=== PATIENT | female | born 1975 | race Two or more races ===

== ENCOUNTER 2025-09-08 23:55 | Emergency (ER) | payer MEDICAID ==
[~2025-09-08] VITALS: Ht 157.5 cm; Wt 50.1 kg
--- NOTE | 2025-09-09 00:53 | Physician Documentation ---
History of Present Illness ~ Chief Complaint: Hand pain Stated Complaint: FINGER INFECTION Time Seen by MD: 00:52 HPI 49-year-old female presenting with hand pain She tells me that about a week or so ago she cut her hand with a piece of glass. Since that time she has had gradually worsening pain, swelling, redness, and warmth. She actually went to the hospital and red [place]. She was admitted to the hospital and given IV antibiotics, and says that they were going to do surgery. However she left against medical advice. She returns here with worsening symptoms. She is right-handed Per paperwork from [facility]. The patient was seen a couple of times in the emergency department for similar symptoms. She was diagnosed with hand cellulitis and flexor tenosynovitis. She was treated with antibiotics, and plan was for orthopedic surgery. She did have a normal hand x-ray. Medication Reconciliation Allergies: Coded Allergies: ceftriaxone (Verified Allergy, Intermediate, 09/09/25) Review of Systems Constitutional: Denies: fever Musculoskeletal: Reports: pain, swelling Integumentary: Reports: rash Physical Exam Vital Signs: Temperature: 98.2, Source: Oral, Heart Rate: 98, Respiratory Rate: 18, BP: 114/70, Pulse Oximetry: 100, Weight: 50.100 Physical Exam General: This is a tired and uncomfortable appearing middle-aged woman, partner at bedside HEENT: Atraumatic, oropharynx is moist Heart: Mild tachycardic, appears regular Lungs: normal work of breathing, normal oxygen saturation on room air Extremities: Right-hand: The patient has significant swelling, redness and warmth to her woods d, especially around the 1st and 2nd digits and hand, which extends down to the distal forearm. She is unable to straighten her 2nd digit, and has significant tenderness along the flexor sheath region. There is some skin discoloration around the fingertip, with some blistering. Neuro: Alert and oriented Psychiatric: Flattened affect, but is cooperative with exam Progress Results/Orders Results/Orders Orders - OWEN CHU MD Culture Blood (09/09/25 01:09) Ct Upper Extrem(Shoulder/Arm) (09/09/25 06:00) Completed Orders - OWEN CHU MD C-Reactive Protein (09/09/25 01:09) Cbc/Diff (09/09/25 01:09) CMP (09/09/25 01:09) LA (09/09/25 01:09) ESR (09/09/25 01:09) Ketorolac Trometh 15mg/Ml Vial (Toradol (09/09/25 01:10) Morphine 4mg/Ml Inj. (Morphine Inj.) (09/09/25 01:10) Vancomycin*Pharmacy To Dose* (Vancomycin (09/09/25 01:10) Piperacillin/Tazo 4.5gm/100ml (Zosyn 4.5 (09/09/25 08:00) Vancomycin 1250mg/Ns 250ml Bag (Vancomyc (09/09/25 03:40) Hydromorphone 1 Mg/Ml/Pf (Dilaudid Inj.) (09/09/25 03:50) Vancomycin/Ns 1 Gm Add-[place] (Vancomyc (09/09/25 04:00) Vancomycin 1250mg/Ns 250ml Bag (Vancomyc (09/09/25 04:15) Potassium Cl 10meq/100ml Bag (Potassium (09/09/25 04:30) Ct Upper Extrem(Shoulder/Arm) (09/09/25 06:00) Iohexol 300mg/Ml 100ml Inj. (Omnipaque-3 (09/09/25 05:27) Vital Signs 09/08/25 09/09/25 09/09/25 09/09/25 23:58 01:09 01:38 01:38 Temp 98.2 Pulse 98 Resp 18 16 16 17 B/P (MAP) 114/70 Pulse Ox 100 09/09/25 09/09/25 09/09/25 09/09/25 04:24 05:42 06:02 06:41 Pulse 92 88 Resp 16 16 16 17 B/P (MAP) 120/74 (89) 112/72 (85) Pulse Ox 99 99 09/09/25 09/09/25 06:41 07:30 Temp 98.9 Pulse 78 93 Resp 18 18 B/P (MAP) 107/65 (79) 107/61 (76) Pulse Ox 98 98 O2 Flow Rate 0 0 Laboratory Tests Test 09/09/25 01:17 09/09/25 01:33 Lactic Acid Level 1.3 White Blood Count 9.4 Red Blood Count 3.29 L Hemoglobin 9.6 L Hematocrit 28.4 L Mean Corpuscular Volume 86.3 Mean Corpuscular Hemoglobin 29.2 Mean Corpuscular Hemoglobin Concent 33.8 Red Cell Distribution Width 13.9 Platelet Count 179 Mean Platelet Volume 8.4 Neutrophils (%) (Auto) 74.3 Lymphocytes (%) (Auto) 13.3 L Monocytes (%) (Auto) 11.0 Eosinophils (%) (Auto) 0.8 Basophils (%) (Auto) 0.6 Neutrophils # (Auto) 7.0 Lymphocytes # (Auto) 1.3 Monocytes # (Auto) 1.0 H Eosinophils # (Auto) 0.1 Basophils # (Auto) 0.1 CBC Comment Erythrocyte Sedimentation Rate 46 H Sodium Level 139 Potassium Level 3.0 *L Chloride Level 102 Carbon Dioxide Level 30.5 Anion Gap 7 L Blood Urea Nitrogen 4 L Creatinine 0.39 L Estimated GFR/1.73 m2 > 90 BUN/Creatinine Ratio 10.3 Glucose Level 134 H Calcium Level 8.4 L Total Bilirubin 0.4 Aspartate Amino Transf (AST/SGOT) 11 Alanine Aminotransferase (ALT/SGPT) 9 L Alkaline Phosphatase 61 C-Reactive Protein 13.15 H Total Protein 6.2 L Albumin 2.6 L Globulin 3.6 Albumin/Globulin Ratio 0.7 L Chemistry Comments Microbiology Date/Time Source Procedure Growth Status 09/09/25 01:33 Blood Iv Start Blood Culture - Preliminary NO GROWTH AFTER 1 DAY Resulted EKG/XRAY/CT/US/VASC/MRI CT : Impression INDICATION: right hand and arm infection, eval abscess, gas COMPARISON: None TECHNIQUE: CT scan of the right forearm was performed with 100 mL Omnipaque 300 intravenous contrast. Coronal and sagittal reformatted images are provided. CONTRAST: None Radiation Dose Information: CTDI volume is 29.97 mGy. Dose-length product is 1170.5 mGy*cm FINDINGS: There is soft tissue swelling in the posterior forearm from the mid to distal forearm and extending into the hand. There is marked soft tissue swelling surrounding the index finger. No fluid collection. No soft tissue gas. There is no cortical erosion or periosteal reaction. No acute fracture or dislocation. The joint spaces are maintained. Normal vascular enhancement. IMPRESSION: 1. Soft tissue swelling in the posterior forearm from the mid to distal forearm and extending into the hand which may reflect Cellulitis. 2. Marked soft tissue swelling surrounding the index finger which may reflect Cellulitis. No fluid collection. 3. No soft tissue gas. 4. No acute fracture or dislocation. Consults/PCP Consults/PCP : Additional Comment Consult: I spoke to [facility] [place]. They state there were no beds available at [facility]. Medical Decision Making Additional information obtaine: old records Findings We will attempt to get outside records from the [facility] General Diff Dx:Considerations: Unlikely: Abrasion Shoulder Diff Dx:Consideration: Unlikely: AC separation Elbow Diff Dx:Considerations: Unlikely: Abrasion Wrist Diff Dx:Considerations: Unlikely: Abrasion Hand Diff Dx:Considerations: Include: Septic, Tenosynovitis, Cellulitis Finger Diff Dx:Considerations: Include: Cellulitis Additional Comment Patient presents with redness swelling and warmth so her right hand and arm. On exam she has findings consistent with significant infection and likely flexor tenosynovitis. An IV was placed and she was given pain medications and IV antibiotics. Labs show elevated inflammatory markers. Normal lactate. A CT of the hand will be obtained to evaluate for abscess. She will require transfer for orthopedic hand surgeon evaluation. 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 The patient was signed out at shift change, pending CT scan and transfer for admission and surgical evaluation. Received sign-out from previous ED physician. This is a 49-year-old female presenting with right hand flexor tenosynovitis. I spoke with and [facility] in [place]. They accepted the patient for hand surgery consultation. Patient will be transferred via ambulance. Departure Impression: Primary Impression: Cellulitis of hand Additional Impression: Suppurative tenosynovitis of flexor tendon of right hand Referrals: NO PRIMARY CARE PROVIDER (PCP) Signature Scribe Signature: na Attestation: OWEN Smith MD Sep 09, 2025 00:53 MARTINEZ DUNBAR MD Sep 09, 2025 06:53
[2025-09-09] MEDS: morphine 4 MG/ML inj SYRINge IV ONE (01:38)
[2025-09-09] MEDS: ketorolac trometh 15mg/ml vial 15 MG/ML ML IV ONE (01:38)
[2025-09-09 01:50] LABS: MEAN PLATELET VOLUME 8.4 FL (7.4-10.4); RED CELL DISTRIBUTION WIDTH 13.9 % (11.5-14.5)
[2025-09-09 01:55] LABS: CREATININE 0.39 MG/DL (0.40-0.90); TOTAL CARBON DIOXIDE 30.5 MMOL/L (24-32); eCRCL 141 ML/MIN; eGFR > 90 ML/MIN
[2025-09-09] MEDS ORDERED: vancomycin/NS 1 GM ADD-VANTAGE 250 ML IV SCH ×2 (04:00→12:00)
[2025-09-09] MEDS: VANCOmycin 1250MG/NS 250ml Bag 250 ML IV ONE ×2 (04:59→05:00)
[2025-09-09] MEDS ORDERED: iohexol 300mg/ml 100ml inj. ONE (05:27)
[2025-09-09 06:41] VITALS: TEMP 98.9
[2025-09-09] MEDS: potassium CL 10mEq/100ml bag 100 ML IV ONE (06:58)
--- NOTE | 2025-09-09 07:21 | RADIOLOGY REPORT ---
INDICATION: right hand and arm infection, eval abscess, gas COMPARISON: None TECHNIQUE: CT scan of the right forearm was performed with 100 mL Omnipaque 300 intravenous contrast. Coronal and sagittal reformatted images are provided. CONTRAST: None Radiation Dose Information: CTDI volume is 29.97 mGy. Dose-length product is 1170.5 mGy*cm FINDINGS: There is soft tissue swelling in the posterior forearm from the mid to distal forearm and extending into the hand. There is marked soft tissue swelling surrounding the index finger. No fluid collection. No soft tissue gas. There is no cortical erosion or periosteal reaction. No acute fracture or dislocation. The joint spaces are maintained. Normal vascular enhancement. IMPRESSION: 1. Soft tissue swelling in the posterior forearm from the mid to distal forearm and extending into the hand which may reflect Cellulitis. 2. Marked soft tissue swelling surrounding the index finger which may reflect Cellulitis. No fluid collection. 3. No soft tissue gas. 4. No acute fracture or dislocation.
[2025-09-09 07:30] VITALS: BP 107/61; PULSE 93; RESP 18; O2SAT 98
[2025-09-09] MEDS: piperacillin/tazo 4.5gm/100ml 100 ML IV ONE (08:04)
== END 2025-09-09 09:41 ==
LOC: ER 23:56
DX: L03.113 Cellulitis of right upper limb (principal); M65.141 Other infective (teno)synovitis, right hand; Z88.1 Allergy status to other antibiotic agents
CPT/HCPCS: 36415; 73201; 80053; 83605; 85025; 85651; 86140; 87040; 87077; 87186; 96361; 96365; 96366; 96367; 96375; 99285; J1171; J1885; J2270; J2543; J3374; J3480; Q9967